=== PATIENT | female | born 1950 | race Caucasian/White ===

== ENCOUNTER 2017-01-25 05:48 | Emergency (ER) | payer OTHER, MEDICARE ==
[~2017-01-25] VITALS: Ht 165.1 cm; Wt 59.0 kg
[~2017-01-25 05:48] MED LIST: FLAGYL500 MG PO; LEVOFLOXACIN500 M1 PO; MOTRIN800 MG PO; PRILOSEC20 MG PO
[2017-01-25 07:36] LABS: BASOPHIL % 0.5 % (0-2)
[2017-01-25 07:37] LABS: PLATELET COUNT 95 x10^3mcL (130-400); RED CELL DISTRIBUTION WIDTH 15.1 % (11.5-14.5)
[2017-01-25 07:39] LABS: CALCIUM 8.7 mg/dL (8.5-10.1); CARBON DIOXIDE 25.6 mmol/L (21-32); CHLORIDE SERUM 111 mmol/L (98-107); CREATININE SERUM 0.8 mg/dL (0.6-1.0); GFR1 > 60 mL/min; GLUCOSE SERUM 99 mg/dL (74-106); SODIUM SERUM 143 mmol/L (136-145)
[2017-01-25 07:50] LABS: ALKALINE PHOSPHATASE 133 U/L (46-116); ALT/SGPT 33 U/L (14-59); AMYLASE 94 U/L (25-115); AST/SGOT 56 U/L (15-37); BILIRUBIN TOTAL 0.65 mg/dL (0.20-1.00); HDL CHOLESTEROL 44 mg/dL (40-60); LIPASE 239 IU/L (73-393); T4(THYROXINE) 6.5 ug/dL (4.7-13.3); TOTAL PROTEIN, SERUM 6.3 g/dL (6.4-8.2)
[2017-01-25 07:51] LABS: ALBUMIN 2.7 g/dL (3.4-5.0); CHOLESTEROL 83 mg/dL (<200)
[2017-01-25 09:42] LABS: UA SPECIFIC GRAVITY 1.015 (1.005-1.035); microscopic required? YES; urine erythrocyte TRACE (NEGATIVE)
[2017-01-25 09:51] LABS: AMPHETAMINE QUAL UR NONE DETECTED (NEG <=1000)
[2017-01-25 12:04] VITALS: BP 109/63
== END 2017-01-25 12:04 | disposition home or self-care (01) ==
LOC: ED 05:48
PROVIDERS: Emergency Medicine
DX: R56.9 Unspecified convulsions (principal); N39.0 Urinary tract infection, site not specified; K70.30 Alcoholic cirrhosis of liver without ascites; E78.00 Pure hypercholesterolemia, unspecified; D69.6 Thrombocytopenia, unspecified; D64.9 Anemia, unspecified; F17.200 Nicotine dependence, unspecified, uncomplicated; Z71.6 Tobacco abuse counseling; Z88.0 Allergy status to penicillin; Z86.73 Personal history of transient ischemic attack (TIA), and cerebral infarction without residual deficits
CPT/HCPCS: 80307; 82962; 83880; 99406; G0480; Q0092

== ENCOUNTER 2018-01-01 14:59 | Emergency (ER) | payer OTHER, MEDICARE ==
[~2018-01-01] VITALS: Ht 165.1 cm; Wt 59.0 kg
[2018-01-01 15:07] VITALS: Ht 165.1 cm; Wt 59.0 kg
[2018-01-01 16:56] LABS: BASOPHIL % 0.4 % (0-2)
[2018-01-01 16:58] LABS: PLATELET COUNT 95 x10^3mcL (130-400); RED CELL DISTRIBUTION WIDTH 14.7 % (11.5-14.5)
[2018-01-01 17:09] LABS: CALCIUM 9.3 mg/dL (8.5-10.1); CARBON DIOXIDE 25.2 mmol/L (21-32); CHLORIDE SERUM 112 mmol/L (98-107); CREATININE SERUM 0.9 mg/dL (0.6-1.0); GFR1 > 60 mL/min; GLUCOSE SERUM 82 mg/dL (74-106); POTASSIUM SERUM 4.5 mmol/L (3.5-5.1); SODIUM SERUM 148 mmol/L (136-145)
[2018-01-01 17:16] LABS: ALBUMIN 3.1 g/dL (3.4-5.0); ALKALINE PHOSPHATASE 95 U/L (46-116); ALT/SGPT 24 U/L (14-59); AST/SGOT 47 U/L (15-37); BILIRUBIN TOTAL 0.69 mg/dL (0.20-1.00); TOTAL PROTEIN, SERUM 6.4 g/dL (6.4-8.2)
[2018-01-01 17:30] VITALS: BP 124/64
== END 2018-01-01 17:44 | disposition home or self-care (01) ==
LOC: ED 14:59
PROVIDERS: Emergency Medicine
DX: G40.409 Other generalized epilepsy and epileptic syndromes, not intractable, without status epilepticus (principal); G30.9 Alzheimer's disease, unspecified; F02.80 Dementia in other diseases classified elsewhere, unspecified severity, without behavioral disturbance, psychotic disturbance, mood disturbance, and anxiety; K74.60 Unspecified cirrhosis of liver; Z86.73 Personal history of transient ischemic attack (TIA), and cerebral infarction without residual deficits; Z88.1 Allergy status to other antibiotic agents
CPT/HCPCS: J2060

== ENCOUNTER 2018-04-04 10:51 | Inpatient (IN) | payer OTHER, MEDICARE ==
[~2018-04-04] VITALS: Ht 165.1 cm; Wt 65.0 kg
[2018-04-04 13:34] LABS: BASOPHIL % 0.4 % (0-2); RED CELL DISTRIBUTION WIDTH 13.8 % (11.5-14.5)
[2018-04-04 13:45] LABS: CALCIUM 8.8 mg/dL (8.5-10.1); CARBON DIOXIDE 26.7 mmol/L (21-32); CHLORIDE SERUM 109 mmol/L (98-107); CREATININE SERUM 0.9 mg/dL (0.6-1.0); GFR1 > 60 mL/min; GLUCOSE SERUM 196 mg/dL (74-106); POTASSIUM SERUM 4.1 mmol/L (3.5-5.1); SODIUM SERUM 143 mmol/L (136-145)
[2018-04-04 13:51] LABS: ALKALINE PHOSPHATASE 144 U/L (46-116); ALT/SGPT 103 U/L (14-59); AST/SGOT 226 U/L (15-37); BILIRUBIN TOTAL 1.08 mg/dL (0.20-1.00); TOTAL PROTEIN, SERUM 6.3 g/dL (6.4-8.2)
[2018-04-04 14:13] LABS: PLATELET COUNT 79 x10^3mcL (130-400)
[2018-04-04 14:19] LABS: ALBUMIN 2.9 g/dL (3.4-5.0)
[2018-04-04 15:06] LABS: microscopic required? YES; urine erythrocyte TRACE (NEGATIVE)
[2018-04-04 15:06] LABS: T3 TOTAL 0.98 ng/mL
[2018-04-04 15:16] LABS: AMYLASE 1695 U/L (25-115)
[2018-04-04 15:18] LABS: LIPASE 19286 IU/L (73-393)
[2018-04-04] MEDS ORDERED: LAMOTRIGINE25 MG PO (15:22)
[2018-04-04] MEDS ORDERED: SEROQUEL25 MG PO (15:22)
[2018-04-04] MEDS ORDERED: MEMANTINE HCL10 MG PO (15:22)
[2018-04-04] MEDS ORDERED: PLAVIX75 M1 PO (15:22)
[2018-04-04] MEDS ORDERED: KEPPRA500 MG PO (15:22)
[2018-04-04] MEDS ORDERED: LACTULOSE10 GM/152 PO (15:23)
[2018-04-04] MEDS ORDERED: XANAX0.25 MG (15:24)
[2018-04-04 15:28] LABS: AMPHETAMINE QUAL UR NONE DETECTED (See below)
[2018-04-04 15:30] LABS: MAGNESIUM 1.8 mg/dL (1.8-2.4)
[2018-04-04 15:31] LABS: CHOLESTEROL/HDL RATIO 2.2
[2018-04-04 15:48] LABS: FREE T4 1.05 ng/dL (0.76-1.46); FREE THYROXINE INDEX 2.1 ug/dL (1.4-4.5); T4(THYROXINE) 6.1 ug/dL (4.7-13.3)
[2018-04-04 16:19] VITALS: BP 138/63
[2018-04-04] MEDS ORDERED: MAC100 PO (18:27)
[2018-04-04 21:44] VITALS: BP 138/58
[2018-04-05 05:31] VITALS: BP 102/57
[2018-04-05 06:54] LABS: BASOPHIL % 0.2 % (0-2)
[2018-04-05 06:55] LABS: CARBON DIOXIDE 23.8 mmol/L (21-32); CHLORIDE SERUM 113 mmol/L (98-107); CREATININE SERUM 0.7 mg/dL (0.6-1.0); GFR1 > 60 mL/min; GLUCOSE SERUM 86 mg/dL (74-106); MAGNESIUM 1.7 mg/dL (1.8-2.4); PHOSPHOROUS 4.1 mg/dL (2.5-4.9); POTASSIUM SERUM 4.2 mmol/L (3.5-5.1); SODIUM SERUM 143 mmol/L (136-145)
[2018-04-05 08:05] LABS: PLATELET COUNT 81 x10^3mcL (130-400)
[2018-04-05 08:50] VITALS: BP 129/58
[2018-04-05 09:23] LABS: BILIRUBIN DIRECT 0.27 mg/dL (0.0-0.2); BILIRUBIN TOTAL 0.99 mg/dL (0.20-1.00)
[2018-04-05 09:25] LABS: ALBUMIN 2.5 g/dL (3.4-5.0); TOTAL PROTEIN, SERUM 5.4 g/dL (6.4-8.2)
[2018-04-05 17:41] VITALS: BP 117/51
[2018-04-05 21:52] VITALS: BP 124/54
[2018-04-06 05:47] VITALS: BP 114/56
[2018-04-06 07:15] LABS: CALCIUM 8.3 mg/dL (8.5-10.1); CARBON DIOXIDE 24.7 mmol/L (21-32); CHLORIDE SERUM 110 mmol/L (98-107); CREATININE SERUM 0.7 mg/dL (0.6-1.0); GFR1 > 60 mL/min; GLUCOSE SERUM 93 mg/dL (74-106); MAGNESIUM 1.7 mg/dL (1.8-2.4); PHOSPHOROUS 3.6 mg/dL (2.5-4.9); POTASSIUM SERUM 3.9 mmol/L (3.5-5.1); SODIUM SERUM 144 mmol/L (136-145)
[2018-04-06 07:52] LABS: BASOPHIL % 0.4 % (0-2); PLATELET COUNT 73 x10^3mcL (130-400); RED CELL DISTRIBUTION WIDTH 13.7 % (11.5-14.5)
[2018-04-06 12:30] VITALS: BP 149/50
[2018-04-06 13:30] VITALS: BP 114/49
[2018-04-06 16:37] VITALS: BP 123/60
[2018-04-06 21:37] VITALS: BP 116/47
[2018-04-07 05:50] VITALS: BP 125/59
[2018-04-07 06:34] LABS: CALCIUM 8.3 mg/dL (8.5-10.1); CARBON DIOXIDE 25.3 mmol/L (21-32); CHLORIDE SERUM 110 mmol/L (98-107); CREATININE SERUM 0.6 mg/dL (0.6-1.0); GFR1 > 60 mL/min; GLUCOSE SERUM 87 mg/dL (74-106); MAGNESIUM 1.8 mg/dL (1.8-2.4); PHOSPHOROUS 3.1 mg/dL (2.5-4.9); POTASSIUM SERUM 3.8 mmol/L (3.5-5.1); SODIUM SERUM 143 mmol/L (136-145)
[2018-04-07 06:39] LABS: BASOPHIL % 0.3 % (0-2); RED CELL DISTRIBUTION WIDTH 13.8 % (11.5-14.5)
[2018-04-07] MEDS ORDERED: LAC PO (06:49)
[2018-04-07] MEDS ORDERED: LEVOFLOXACIN500 M1 PO (06:49)
[2018-04-07 07:08] LABS: PLATELET COUNT 73 x10^3mcL (130-400)
[2018-04-07 08:23] VITALS: BP 134/65
[2018-04-07 13:09] VITALS: BP 128/83
[2018-04-07 18:47] VITALS: BP 139/52
== END 2018-04-07 19:51 | disposition home health service (06) | DRG 438 ==
LOC: ED 10:51 → DU 14:12 → MU 14:12 → DU 16:07 → MU 04-05 09:51
PROVIDERS: Emergency Medicine; Family Medicine; Internal Medicine Gastroenterology
PROC: 0DB68ZX Excision of Stomach, Via Natural or Artificial Opening Endoscopic, Diagnostic (ICD-10-PCS; principal; 2018-04-06 09:30)
PROC: 0F798ZZ Dilation of Common Bile Duct, Via Natural or Artificial Opening Endoscopic (ICD-10-PCS; 2018-04-06 09:30)
DX: K85.90 Acute pancreatitis without necrosis or infection, unspecified (principal); E43 Unspecified severe protein-calorie malnutrition; N39.0 Urinary tract infection, site not specified; K72.90 Hepatic failure, unspecified without coma; K80.20 Calculus of gallbladder without cholecystitis without obstruction; N20.0 Calculus of kidney; E83.42 Hypomagnesemia; K70.30 Alcoholic cirrhosis of liver without ascites; G40.909 Epilepsy, unspecified, not intractable, without status epilepticus; G30.9 Alzheimer's disease, unspecified; F02.80 Dementia in other diseases classified elsewhere, unspecified severity, without behavioral disturbance, psychotic disturbance, mood disturbance, and anxiety; N28.1 Cyst of kidney, acquired; R31.9 Hematuria, unspecified; F41.9 Anxiety disorder, unspecified; Z68.23 Body mass index [BMI] 23.0-23.9, adult; Z86.73 Personal history of transient ischemic attack (TIA), and cerebral infarction without residual deficits; Z79.1 Long term (current) use of non-steroidal anti-inflammatories (NSAID)
CPT/HCPCS: 43235; 43262; 83880; 84439; 94150; C1769; G0480; J1610; J1885; J1956; J2175; J2250; J2270; J2405; J2704; J3475; J7030; J7120; Q0092; Q9967